=== PATIENT | female | born 1970 | race Caucasian/White ===

== ENCOUNTER → 2018-09-13 | Outpatient (CLI) | payer OTHER ==
[~2018-09-13] MED LIST: ERYTHROMYCIN PO; FLUO10 PO; LORA1 PO
[2018-09-15 15:06] LABS: HPV 16 Positive (Negative); HPV 18 Negative (Negative); HPV OTHER HR TYPES Negative (Negative)
== END | disposition home or self-care (01) ==
LOC: LAB SHORT 16:33 → LAB 16:33
PROVIDERS: Obstetrics & Gynecology
DX: Z01.419 Encounter for gynecological examination (general) (routine) without abnormal findings (principal)
CPT/HCPCS: 87624; 87625; G0123

== ENCOUNTER → 2018-09-21 | Outpatient (CLI) | payer OTHER | END | disposition home or self-care (01) | LOC: LAB SHORT 08:31 → PLD 08:31 | DX: R87.618 Other abnormal cytological findings on specimens from cervix uteri (principal); R87.612 Low grade squamous intraepithelial lesion on cytologic smear of cervix (LGSIL) | CPT/HCPCS: 88305 ==

== ENCOUNTER → 2018-11-30 | Outpatient (CLI) | payer OTHER ==
[~2018-11-30] MED LIST changes: +BENADRYL25 MG PO; +Bactrim Ds Tab1 EACH PO; +Bentyl20 MG PO; +CIPR500 PO; +DOCU100 PO; +Flagyl500 MG PO; +HYDMOR4 PO; +IBUP800 PO; +LEVSOD25 PO; +MELO7.5 PO; +Nature-Throid65 MG PO; +ONDA4ODT MM; +OSCIMIN SL0.125 MG SL; +OTC THYROID SUPP PO; +Ondansetron Odt8 MG PO; +PROBIOTIC PO; +PROG100 PO; +Percocet 5-3251 EACH PO; +Roxicodone5 MG PO; +SIMILASE PO; +THERA1 EACH PO; +Vitamin B Comple1 EA PO; +[UNRECOGNIZED DRUG - OTHER]; +[UNRECOGNIZED DRUG - OTHER]; +[UNRECOGNIZED DRUG - OTHER] PO; +[UNRECOGNIZED DRUG - OTHER] PO; +[UNRECOGNIZED DRUG - REMARK]
[2018-11-30 18:01] LABS: BASOPHILS ABSOLUTE AUTO 0.03 K/mm3 (0.00-0.23); BASOPHILS PERCENT AUTO 1 % (0-2); EOSINOPHILS ABSOLUTE AUTO 0.16 K/mm3 (0.00-0.68); EOSINOPHILS PERCENT AUTO 3 % (0-6); Hematocrit 38.9 % (33.0-51.0); Hemoglobin 13.4 g/dL (11.5-16.0); IMMATURE GRAN ABSOLUTE AUTO 0.01 K/mm3 (0.00-0.10); IMMATURE GRAN PERCENT AUTO 0 % (0-1); LYMPHOCYTES ABSOLUTE AUTO 2.09 K/mm3 (0.84-5.20); LYMPHOCYTES PERCENT AUTO 39 % (21-46); MONOCYTES ABSOLUTE AUTO 0.49 K/mm3 (0.16-1.47); MONOCYTES PERCENT AUTO 9 % (4-13); Mean Corpuscular HGB 29.3 pg (26.0-34.0); Mean Corpuscular HGB Conc 34.4 g/dL (31.5-36.5); Mean Corpuscular Volume 85 fL (80-100); Mean Platelet Volume 8.6 fL (9.1-12.4); NEUTROPHILS ABSOLUTE AUTO 2.57 K/mm3 (1.96-9.15); NEUTROPHILS PERCENT AUTO 48 % (41-73); Platelet Count 419 K/mm3 (150-400); RDW Coefficient Variation 12.5 % (11.7-14.2); RDW Standard Deviation 38.4 fL (35.1-46.3); Red Blood Cell Count 4.57 M/mm3 (3.80-5.20); White Blood Cell Count 5.35 K/mm3 (4.00-11.30)
== END ==
LOC: LAB SHORT 17:45 → LAB 17:45
PROVIDERS: Obstetrics & Gynecology
DX: Z01.812 Encounter for preprocedural laboratory examination (principal); D06.9 Carcinoma in situ of cervix, unspecified; N39.3 Stress incontinence (female) (male)
CPT/HCPCS: 85025

== ENCOUNTER 2018-12-05 06:04 | Day surgery (SDC) | payer OTHER ==
[~2018-12-05] VITALS: Ht 162.6 cm; Wt 77.6 kg
[~2018-12-05 06:04] MED LIST changes: -BENADRYL25 MG PO; -Bactrim Ds Tab1 EACH PO; -Bentyl20 MG PO; -CIPR500 PO; -DOCU100 PO; -Flagyl500 MG PO; -HYDMOR4 PO; -IBUP800 PO; -LEVSOD25 PO; -Nature-Throid65 MG PO; -ONDA4ODT MM; -OSCIMIN SL0.125 MG SL; -Ondansetron Odt8 MG PO; -PROG100 PO; -Percocet 5-3251 EACH PO; -Roxicodone5 MG PO
--- NOTE | 2018-12-05 06:33 | NUR ---
History, Chart, Medications and Allergies reviewed before start of procedure. Patient confirms NPO status and agrees with scheduled surgery. Lungs clear T/O to Auscultation. Patient reports completing Chlorhexadine shower X2 prior to admission to hospital. Pre-Op teaching done. Pt verbalizes understanding.
[2018-12-05] MEDS ORDERED: PROG100 PO (07:08)
--- NOTE | 2018-12-05 07:13 | NUR ---
BEDSIDE REPORT WITH MORTGAGE SPECIALIST COMPLETED AT BEDSIDE, ANGELA Solomon
--- NOTE | 2018-12-05 07:14 | NUR ---
SERUM SUBMITTED DUE TO DILUTE URINE, ANESTHESIOLOGIST HAS BEEN NOTIFIED.
--- NOTE | 2018-12-05 07:35 | NUR ---
[id number]-CALL RECEIVED FROM OR TO BRING PATIENT. PATIENT SENT HER WEDDING RING AND HER GLASSES WITH HER .
--- NOTE | 2018-12-05 19:36 | NUR ---
SHIFT SUMMARY PT STRUGGLED WITH PAIN MANAGMENT INITIALLY POST OP BUT ONCE PERCOCET WAS STARTED PT HAD MUCH BETTER PAIN MANAGEMENT. WAS UP ABLE TO AMBULATE DUE TO DIZZINESS/NOT FEELING WELL BUT AGREED TO TRY AGAIN LATER.
[2018-12-06 03:55] LABS: BASOPHILS ABSOLUTE AUTO 0.02 K/mm3 (0.00-0.23); BASOPHILS PERCENT AUTO 0 % (0-2); EOSINOPHILS ABSOLUTE AUTO 0.02 K/mm3 (0.00-0.68); EOSINOPHILS PERCENT AUTO 0 % (0-6); Hematocrit 34.2 % (33.0-51.0); Hemoglobin 11.4 g/dL (11.5-16.0); IMMATURE GRAN ABSOLUTE AUTO 0.02 K/mm3 (0.00-0.10); IMMATURE GRAN PERCENT AUTO 0 % (0-1); LYMPHOCYTES ABSOLUTE AUTO 2.03 K/mm3 (0.84-5.20); LYMPHOCYTES PERCENT AUTO 23 % (21-46); MONOCYTES ABSOLUTE AUTO 0.81 K/mm3 (0.16-1.47); MONOCYTES PERCENT AUTO 9 % (4-13); Mean Corpuscular HGB 29.4 pg (26.0-34.0); Mean Corpuscular HGB Conc 33.3 g/dL (31.5-36.5); Mean Corpuscular Volume 88 fL (80-100); Mean Platelet Volume 8.4 fL (9.1-12.4); NEUTROPHILS ABSOLUTE AUTO 6.02 K/mm3 (1.96-9.15); NEUTROPHILS PERCENT AUTO 68 % (41-73); Platelet Count 329 K/mm3 (150-400); RDW Coefficient Variation 12.9 % (11.7-14.2); RDW Standard Deviation 41.8 fL (35.1-46.3); Red Blood Cell Count 3.88 M/mm3 (3.80-5.20); White Blood Cell Count 8.92 K/mm3 (4.00-11.30)
--- NOTE | 2018-12-06 07:17 | NUR ---
POD 1 S/P LAVH. PT VSS T/O NIGHT. DRESSINGS CDI, PT HAVING MIN BAGINAL BLEEDING. PAIN MGD ALT PERCOCET AND OXYCODONE W/REP RELIEF. PT DUNIA PO, REP +FLATUS, NO C/O N/V. PT USING CALL LIGHT FOR ASSISTANCE, REP GIVEN TO DAY RN.
[2018-12-06] MEDS ORDERED: DOCU100 PO (11:12)
[2018-12-06] MEDS ORDERED: Percocet 5-3251 EACH PO (11:13)
[2018-12-06] MEDS ORDERED: IBUP800 PO (11:13)
--- NOTE | 2018-12-06 16:40 | NUR ---
DISCHARGE PT VOIDING WELL, TOLERATING DIET, PASSING GAS, AND PAIN WELL MANAGED. SCRIPT GIVEN TO SPOUSE. PT AND SPOUSE FEEL COMFORTABLE WITH DISCHARGE.
== END 2018-12-06 16:41 | disposition home or self-care (01) ==
LOC: ORSCMMR 06:04 → ORD 07:30 → SURS 10:15 → ORSCMMR 12-06 16:41
PROVIDERS: Obstetrics & Gynecology
DX: D06.9 Carcinoma in situ of cervix, unspecified (principal); R10.2 Pelvic and perineal pain; N83.12 Corpus luteum cyst of left ovary; Q50.5 Embryonic cyst of broad ligament; N39.3 Stress incontinence (female) (male); N80.3 Endometriosis of pelvic peritoneum; Z79.899 Other long term (current) drug therapy
CPT/HCPCS: 36415; 84703; 85025; 88307; C1771; J0690; J1100; J1170; J1885; J2250; J2370; J2405; J2704; J2710; J3010; J7030; J7120

== ENCOUNTER 2018-12-11 23:59 | Emergency (ER) | payer OTHER ==
[~2018-12-11] VITALS: Ht 162.6 cm; Wt 74.8 kg
[~2018-12-11 23:59] MED LIST changes: +DOCU100 PO; +IBUP800 PO; +PROG100 PO; +Percocet 5-3251 EACH PO
[2018-12-12 02:59] LABS: BASOPHILS ABSOLUTE AUTO 0.02 K/mm3 (0.00-0.23); BASOPHILS PERCENT AUTO 0 % (0-2); EOSINOPHILS PERCENT AUTO 3 % (0-6); Hematocrit 39.1 % (33.0-51.0); Hemoglobin 13.6 g/dL (11.5-16.0); IMMATURE GRAN ABSOLUTE AUTO 0.01 K/mm3 (0.00-0.10); IMMATURE GRAN PERCENT AUTO 0 % (0-1); LYMPHOCYTES ABSOLUTE AUTO 2.19 K/mm3 (0.84-5.20); LYMPHOCYTES PERCENT AUTO 23 % (21-46); MONOCYTES ABSOLUTE AUTO 0.91 K/mm3 (0.16-1.47); MONOCYTES PERCENT AUTO 9 % (4-13); Mean Corpuscular HGB 29.1 pg (26.0-34.0); Mean Corpuscular HGB Conc 34.8 g/dL (31.5-36.5); Mean Platelet Volume 8.5 fL (9.1-12.4); NEUTROPHILS ABSOLUTE AUTO 6.31 K/mm3 (1.96-9.15); NEUTROPHILS PERCENT AUTO 65 % (41-73); Platelet Count 391 K/mm3 (150-400); RDW Coefficient Variation 12.7 % (11.7-14.2); RDW Standard Deviation 38.2 fL (35.1-46.3); Red Blood Cell Count 4.67 M/mm3 (3.80-5.20); White Blood Cell Count 9.74 K/mm3 (4.00-11.30)
[2018-12-12 03:00] LABS: Mean Corpuscular Volume 84 fL (80-100)
[2018-12-12 03:12] LABS: Alanine Aminotransfer (ALT/SGP 35 U/L (12-78); Albumin, Blood 3.7 g/dL (3.4-5.0); Albumin/Globulin Ratio 0.9 (0.8-1.8); Alk Phos 98 U/L (50-136); Anion Gap 10 mmol/L (6-16); Aspartate Aminotrans (AST/SGOT 20 U/L (12-37); Bilirubin, Total 0.3 mg/dL (0.1-1.0); Blood Urea Nitrogen 12 mg/dL (8-24); CO2, Blood 22 mmol/L (21-32); Chloride, Blood 110 mmol/L (98-108); Creatinine, Blood 0.46 mg/dL (0.40-1.00); Glomerular Filtration Rate >60 (60-); Glucose, Blood 96 mg/dL (70-99); Potassium, Blood 3.1 mmol/L (3.5-5.5); Sodium, Blood 142 mmol/L (136-145); Total Protein, Blood 7.7 g/dL (6.4-8.2)
[2018-12-12 05:11] LABS: Source, Urine Clean Catch
[2018-12-12 05:13] LABS: Bilirubin, Urine Neg (Neg); Blood, Urine 1+ (Neg); Glucose Qualitative, Urine Neg (Neg); Ketones, Urine Neg (Neg); Leukocyte Esterase, Urine 1+ (Neg); Nitrite, Urine Neg (Neg); Protein, Urine Neg (Neg); Urobilinogen, Urine NORM (Normal)
[2018-12-12 05:22] LABS: Appearance, Urine Clear (Clear); Color, Urine Yellow (P-Yellow)
[2018-12-12 05:36] LABS: Bacteria Many /hpf; Mucus Mod (0-Heavy); Red Blood Cells, Urine 0-2 /hpf (0-2); Squamous Epithelial Cells Few /hpf (Few)
[2018-12-12] MEDS ORDERED: CIPR500 PO (06:22)
[2018-12-12] MEDS ORDERED: Flagyl500 MG PO (06:22)
[2018-12-12] MEDS ORDERED: Roxicodone5 MG PO (06:22)
[2018-12-12] MEDS ORDERED: HYDMOR4 PO (20:40)
[2018-12-12] MEDS ORDERED: ONDA4ODT MM (20:40)
== END 2018-12-12 06:42 | disposition home or self-care (01) ==
LOC: ER 23:59
PROVIDERS: Emergency Medicine
DX: K57.32 Diverticulitis of large intestine without perforation or abscess without bleeding (principal); Z87.891 Personal history of nicotine dependence; Z88.8 Allergy status to other drugs, medicaments and biological substances; Z79.899 Other long term (current) drug therapy
CPT/HCPCS: 36415; 74177; 80053; 81001; 85025; 87086; 96361; 96374-59; 96375; 96376; 99284-25; A9270; A9270-GY; J1170; J2405; J7120; Q9967

== ENCOUNTER 2018-12-12 13:50 | Emergency (ER) | payer OTHER ==
[~2018-12-12] VITALS: Ht 162.6 cm; Wt 74.8 kg
[~2018-12-12 13:50] MED LIST changes: +CIPR500 PO; +Flagyl500 MG PO; +Roxicodone5 MG PO
[2018-12-12 14:30] LABS: BASOPHILS ABSOLUTE AUTO 0.02 K/mm3 (0.00-0.23); BASOPHILS PERCENT AUTO 0 % (0-2); EOSINOPHILS ABSOLUTE AUTO 0.23 K/mm3 (0.00-0.68); EOSINOPHILS PERCENT AUTO 3 % (0-6); Hematocrit 40.5 % (33.0-51.0); Hemoglobin 14.2 g/dL (11.5-16.0); IMMATURE GRAN ABSOLUTE AUTO 0.02 K/mm3 (0.00-0.10); IMMATURE GRAN PERCENT AUTO 0 % (0-1); LYMPHOCYTES ABSOLUTE AUTO 1.97 K/mm3 (0.84-5.20); LYMPHOCYTES PERCENT AUTO 26 % (21-46); MONOCYTES ABSOLUTE AUTO 0.65 K/mm3 (0.16-1.47); MONOCYTES PERCENT AUTO 9 % (4-13); Mean Corpuscular HGB 29.3 pg (26.0-34.0); Mean Corpuscular HGB Conc 35.1 g/dL (31.5-36.5); Mean Corpuscular Volume 84 fL (80-100); Mean Platelet Volume 8.4 fL (9.1-12.4); NEUTROPHILS ABSOLUTE AUTO 4.68 K/mm3 (1.96-9.15); NEUTROPHILS PERCENT AUTO 62 % (41-73); Platelet Count 388 K/mm3 (150-400); RDW Coefficient Variation 12.8 % (11.7-14.2); Red Blood Cell Count 4.85 M/mm3 (3.80-5.20); White Blood Cell Count 7.57 K/mm3 (4.00-11.30)
[2018-12-12 14:51] LABS: Alanine Aminotransfer (ALT/SGP 32 U/L (12-78); Albumin, Blood 3.9 g/dL (3.4-5.0); Alk Phos 98 U/L (50-136); Anion Gap 8 mmol/L (6-16); Aspartate Aminotrans (AST/SGOT 28 U/L (12-37); Bilirubin, Total 0.7 mg/dL (0.1-1.0); Blood Urea Nitrogen 7 mg/dL (8-24); Bun/Creatinine Ratio 13.8 (12.0-20.0); CO2, Blood 22 mmol/L (21-32); Calcium, Blood 9.7 mg/dL (8.5-10.1); Chloride, Blood 110 mmol/L (98-108); Creatinine, Blood 0.51 mg/dL (0.40-1.00); Glomerular Filtration Rate >60 (60-); Glucose, Blood 125 mg/dL (70-99); Potassium, Blood 3.7 mmol/L (3.5-5.5); Sodium, Blood 140 mmol/L (136-145); Total Protein, Blood 7.9 g/dL (6.4-8.2)
[2018-12-12] MEDS ORDERED: HYDMOR4 PO (20:40)
[2018-12-12] MEDS ORDERED: ONDA4ODT MM (20:40)
== END 2018-12-12 21:10 | disposition home or self-care (01) ==
LOC: ER 13:50
PROVIDERS: Physician Assistant
DX: R51 Headache (principal); Z88.8 Allergy status to other drugs, medicaments and biological substances; Z79.899 Other long term (current) drug therapy
CPT/HCPCS: 36415; 70450; 80053; 83690; 85025; 96361; 96374; 96375; 96376; 99284-25; A9270-GY; J1170; J1885; J2405; J7030

== ENCOUNTER 2018-12-16 13:36 | Inpatient (IN) | payer OTHER ==
[~2018-12-16] VITALS: Ht 162.6 cm; Wt 77.6 kg
[~2018-12-16 13:36] MED LIST changes: +HYDMOR4 PO; +ONDA4ODT MM
[2018-12-16 14:28] LABS: Source, Urine Clean Catch
[2018-12-16 14:52] LABS: Bilirubin, Urine Neg (Neg); Blood, Urine 2+ (Neg); Glucose Qualitative, Urine Neg (Neg); Ketones, Urine 2+ (Neg); Leukocyte Esterase, Urine 1+ (Neg); Nitrite, Urine Neg (Neg); Protein, Urine Neg (Neg); Urobilinogen, Urine NORM (Normal)
[2018-12-16 14:59] LABS: Appearance, Urine Hazy (Clear); Color, Urine Yellow (P-Yellow)
[2018-12-16 15:01] LABS: Bacteria Rare /hpf; Red Blood Cells, Urine 0-2 /hpf (0-2); Squamous Epithelial Cells Mod /hpf (Few)
[2018-12-16 15:03] LABS: Albumin, Blood 3.8 g/dL (3.4-5.0); Bilirubin, Total 0.5 mg/dL (0.1-1.0); Calcium, Blood 9.7 mg/dL (8.5-10.1); Potassium, Blood 3.7 mmol/L (3.5-5.5); Total Protein, Blood 7.8 g/dL (6.4-8.2)
[2018-12-16 15:05] LABS: BASOPHILS ABSOLUTE AUTO 0.03 K/mm3 (0.00-0.23); BASOPHILS PERCENT AUTO 0 % (0-2); EOSINOPHILS ABSOLUTE AUTO 0.09 K/mm3 (0.00-0.68); EOSINOPHILS PERCENT AUTO 1 % (0-6); Hematocrit 41.1 % (33.0-51.0); Hemoglobin 14.6 g/dL (11.5-16.0); IMMATURE GRAN ABSOLUTE AUTO 0.04 K/mm3 (0.00-0.10); IMMATURE GRAN PERCENT AUTO 0 % (0-1); LYMPHOCYTES ABSOLUTE AUTO 1.32 K/mm3 (0.84-5.20); LYMPHOCYTES PERCENT AUTO 12 % (21-46); MONOCYTES ABSOLUTE AUTO 1.08 K/mm3 (0.16-1.47); MONOCYTES PERCENT AUTO 10 % (4-13); Mean Corpuscular HGB 29.5 pg (26.0-34.0); Mean Corpuscular HGB Conc 35.5 g/dL (31.5-36.5); Mean Corpuscular Volume 83 fL (80-100); Mean Platelet Volume 8.6 fL (9.1-12.4); NEUTROPHILS ABSOLUTE AUTO 8.35 K/mm3 (1.96-9.15); NEUTROPHILS PERCENT AUTO 77 % (41-73); Platelet Count 383 K/mm3 (150-400); RDW Coefficient Variation 12.3 % (11.7-14.2); RDW Standard Deviation 37.4 fL (35.1-46.3); Red Blood Cell Count 4.95 M/mm3 (3.80-5.20); White Blood Cell Count 10.91 K/mm3 (4.00-11.30)
[2018-12-16 16:12] LABS: Bun/Creatinine Ratio 10.1 (12.0-20.0); Creatinine, Blood 1.19 mg/dL (0.40-1.00)
[2018-12-16] MEDS ORDERED: LEVSOD25 PO (18:47)
[2018-12-16] MEDS ORDERED: Nature-Throid65 MG PO (18:48)
--- NOTE | 2018-12-16 21:38 | NUR ---
PATIENT USED CALL LIGHT TO STATES SHE WAS FEELING FLUSHED AND CLAMMY. PATIENT WAS ANXIOUS AND FELT LIKE SHE WAS GOING TO THROW UP. PATIENT HEART RATE UP TO 130'S FOR LESS THAN ONE MINUTE. HEART RATE MAINTAINING IN THE 100'S.
--- NOTE | 2018-12-17 00:10 | NUR ---
PATIENT USED CALL LIGHT STATING SHE WAS ITCHY AND HAD A RASH ON BOTH INNER KNEE AND THIGHS ALONG WITH BOTH WRIST. PATIENT JUST FINISHED RECIEVING IV CIPRO. PATIENT HAS BEEN TAKING PO CIPRO FOR ALMOST A WEEK AT HOME. PATIENT DENIES ANY OTHER SYMPTOMS. NOTIFIED DR. HARTMAN HOSPITALIST WHO ORDERED FOR ONE TIME DOSE OF BENADRYL AND PREDISONE. PATIENT IS REFUSING PREDISONE STATING THAT IT CRASHES HER IMMUNE SYSTEM DUE TO LYME DISEASE.
--- NOTE | 2018-12-17 01:01 | NUR ---
PATIENT IS VERY DROWSY. ORIENTATED. RASH IS ALMOST RESOLVED.
--- NOTE | 2018-12-17 02:28 | NUR ---
STARTED FLAGYL AND WITHIN 5 MINUTES PATIENT FELT HER HEART WAS RACING, HANDS WERE CLAMMY, FELT IF SHE WAS GOING TO VOMIT, AND HAD DRY MOUTH. PATIENT FELT VERY OFF. STOPPED INFUSION AND CALL DR. DIXON WHO STATED TO HOLD DOSE FOR NOW AND MONITOR. NO FURTHER ORDERS TAKEN. NO ORDERS FOR DISCONTINATION AT THIS TIME.
--- NOTE | 2018-12-17 02:31 | NUR ---
PATIENT STATES SHE FEELS NORMAL AT THIS TIME.
[2018-12-17 03:47] LABS: Source, Urine Clean Catch
[2018-12-17 03:51] LABS: BASOPHILS ABSOLUTE AUTO 0.02 K/mm3 (0.00-0.23); BASOPHILS PERCENT AUTO 0 % (0-2); EOSINOPHILS ABSOLUTE AUTO 0.06 K/mm3 (0.00-0.68); EOSINOPHILS PERCENT AUTO 1 % (0-6); Hematocrit 34.1 % (33.0-51.0); Hemoglobin 11.7 g/dL (11.5-16.0); IMMATURE GRAN ABSOLUTE AUTO 0.01 K/mm3 (0.00-0.10); IMMATURE GRAN PERCENT AUTO 0 % (0-1); LYMPHOCYTES ABSOLUTE AUTO 1.49 K/mm3 (0.84-5.20); LYMPHOCYTES PERCENT AUTO 22 % (21-46); MONOCYTES ABSOLUTE AUTO 0.83 K/mm3 (0.16-1.47); MONOCYTES PERCENT AUTO 12 % (4-13); Mean Corpuscular HGB 28.6 pg (26.0-34.0); Mean Corpuscular HGB Conc 34.3 g/dL (31.5-36.5); Mean Corpuscular Volume 83 fL (80-100); Mean Platelet Volume 8.4 fL (9.1-12.4); NEUTROPHILS ABSOLUTE AUTO 4.53 K/mm3 (1.96-9.15); NEUTROPHILS PERCENT AUTO 65 % (41-73); Platelet Count 288 K/mm3 (150-400); RDW Coefficient Variation 12.6 % (11.7-14.2); RDW Standard Deviation 38.3 fL (35.1-46.3); Red Blood Cell Count 4.09 M/mm3 (3.80-5.20); White Blood Cell Count 6.94 K/mm3 (4.00-11.30)
[2018-12-17 03:51] LABS: Bilirubin, Urine Neg (Neg); Blood, Urine 3+ (Neg); Glucose Qualitative, Urine Neg (Neg); Ketones, Urine Neg (Neg); Leukocyte Esterase, Urine 2+ (Neg); Nitrite, Urine Neg (Neg); Protein, Urine Neg (Neg); Urobilinogen, Urine NORM (Normal)
[2018-12-17 04:09] LABS: Albumin, Blood 2.8 g/dL (3.4-5.0); Albumin/Globulin Ratio 0.9 (0.8-1.8); Bilirubin, Total 0.8 mg/dL (0.1-1.0); Bun/Creatinine Ratio 9.2 (12.0-20.0); Calcium, Blood 7.9 mg/dL (8.5-10.1); Creatinine, Blood 1.3 mg/dL (0.40-1.00); Globulin, Blood 3.2 g/dL (2.2-4.0); Potassium, Blood 3.8 mmol/L (3.5-5.5)
[2018-12-17 04:15] LABS: Appearance, Urine Clear (Clear); Color, Urine Pale Yellow (P-Yellow); Red Blood Cells, Urine 0-2 /hpf (0-2); Squamous Epithelial Cells Few /hpf (Few); White Blood Cells, Urine 25-50 /hpf (0-5)
[2018-12-17 04:16] LABS: Bacteria Few /hpf
--- NOTE | 2018-12-17 06:32 | NUR ---
PATIENT CONTINUES TO HAVE NAUSEA AND PAIN THAT IS BEING MANAGED BY PRN'S. PATIENT HAS HAD EMESIS X1. PATIENT HAD RASH AFTER RECIEVING CIPRO THAT HAS RESOLVED AND REACTION AFTER STARTING FLAYGL. PATIENT STATES THAT SHE TOOK FLAYGL JUST BEFORE SHE CAME INTO THE ER WITH THE SAME REACTION SHE HAD EARLIER AND THEY DIDN'T THINK IT WAS THE MEDICATION BECAUSE SHE HAS BEEN TAKING IT ALL WEEK. NOW THEY THINK IT WAS DUE TO FLAYGL.
--- NOTE | 2018-12-17 10:57 | NUR ---
UPDATE RASH HAS INCREASED TO HER ABDOMEN AND CHEST. VS STABLE. PT REPORTS FEELING "OK", BUT STATES SHE IS ITCHY. DR. MERRILL CALLED AND NOTIFIED. WILL CONTINUE TO MONITOR CLOSELY.
--- NOTE | 2018-12-17 17:42 | NUR ---
SHIFT SUMMARY PT ALERT AND ORIENTED. VS STABLE. O2 SATS REMAIN ABOVE 90% ON RA. PT STATES HER PAIN HAS IMPROVED THIS EVENING. PT HAS NOT HAD A BM THIS SHIFT. RASH HAS COME BACK THIS EVENING AND PT MEDICATED PER EMAR. PLAN IS TO TRY BACTRIM THIS EVENING. PT ABLE TO AMBULATE TO BATHROOM NEEDED TO VOID. FAMILY AT BEDSIDE. WILL CONTINUE TO MONITOR AND REPORT TO ONCOMING RN. CALL LIGHT IN REACH.
--- NOTE | 2018-12-17 21:30 | NUR ---
PATIENT HAS NOTED RASH BACK ON CHEST AND BOTH UPPER THIGHS. PATIENT DENIES ANY SHORTNESS OF BREATH. PATIENT CAN NOT HAVE ANY MORE PRN BENADRYL AT THIS TIME. CALLED DR. HARTMAN WHO ORDERED FOR IV PEPCID AND BENADRYL X1. HOLD BACTRIM UNTIL 2200. PATIENT ACCEPTABLE OF THIS.
--- NOTE | 2018-12-17 23:01 | NUR ---
PATIENT WAS GIVEN BACTRIM AROUND 2230. SHOWS NO SIGNS OF REACTION UP TO THIS POINT.
--- NOTE | 2018-12-18 00:59 | NUR ---
PATIENT HAS RASH STARTING ON UPPER CHEST, LEFT FLANK, AND LEFT THIGH. GIVEN PO BENADRYL.
--- NOTE | 2018-12-18 04:32 | NUR ---
NO SIGNS OF RASH AT THIS TIME. PATIENT HAS BEEN SLEEPING COMFORTABLY.
[2018-12-18 04:33] LABS: Anion Gap 5 mmol/L (6-16); Blood Urea Nitrogen 9 mg/dL (8-24); Bun/Creatinine Ratio 9.6 (12.0-20.0); CO2, Blood 23 mmol/L (21-32); Calcium, Blood 8.3 mg/dL (8.5-10.1); Chloride, Blood 113 mmol/L (98-108); Creatinine, Blood 0.94 mg/dL (0.40-1.00); Glomerular Filtration Rate >60 (60-); Glucose, Blood 90 mg/dL (70-99); Potassium, Blood 3.8 mmol/L (3.5-5.5); Sodium, Blood 141 mmol/L (136-145)
--- NOTE | 2018-12-18 06:19 | NUR ---
PATIENT CONTINUED TO HAVE RASHES ON AND OFF THROUGH THE NIGHT. CURRENTLY HAS NO RASH. PATIENT HAS SLEPT WELL DO TO BENADRYL. PATIENT SLIGHTLY DROWSY, BUT WAKES AND IS ORIENTATED. PATIENT AT BEDSIDE. DENIES ANY PAIN OR NAUSEA AT THIS TIME. RECIEVED PRN'S FOR BOTH NAUSEA AND PAIN.
[2018-12-18] MEDS ORDERED: BENADRYL25 MG PO (09:14)
[2018-12-18] MEDS ORDERED: OSCIMIN SL0.125 MG SL (09:22)
[2018-12-18] MEDS ORDERED: Bactrim Ds Tab1 EACH PO (09:32)
--- NOTE | 2018-12-18 09:55 | NUR ---
PT ALERT AND ORIENTED. VS STABLE. ORDERS THIS AM FOR DISCHARGE. PT GIVEN DISCHARGE INTRUCTIONS. NEW MEDICATIONS REGIMEN EDUCATED TO PT. ALL QUESTIONS ANSWERED. BOTH IV REMOVED. PT TAKEN OUT BY WHEELCHAIR.
== END 2018-12-18 10:05 | disposition home or self-care (01) | DRG 392 ==
LOC: ER 13:36 → PCU 18:51
PROVIDERS: Hospitalist; Nurse Practitioner Acute Care; Physician Assistant; ADMIT Internal Medicine
DX: K57.32 Diverticulitis of large intestine without perforation or abscess without bleeding (principal); N17.9 Acute kidney failure, unspecified; E87.2 Acidosis; G43.909 Migraine, unspecified, not intractable, without status migrainosus; G44.89 Other headache syndrome; K58.9 Irritable bowel syndrome, unspecified; E03.9 Hypothyroidism, unspecified; T37.3X5A Adverse effect of other antiprotozoal drugs, initial encounter; E86.9 Volume depletion, unspecified; Z90.710 Acquired absence of both cervix and uterus; Z90.722 Acquired absence of ovaries, bilateral; Z90.79 Acquired absence of other genital organ(s); Z79.899 Other long term (current) drug therapy
CPT/HCPCS: 36415; 71046; 74176; 80048; 80053; 81001; 83605; 83690; 83735; 84100; 85025; 87040; 87086; 87493; 93005; 93010; 96361; 96365; 96375; 96376; 99285-25; J0696; J0744; J1170; J1200; J1650; J2405; J2543; J3480; J7030; Q0163

== ENCOUNTER 2018-12-21 16:10 | Emergency (ER) | payer OTHER ==
[~2018-12-21] VITALS: Ht 162.6 cm; Wt 73.5 kg
[~2018-12-21 16:10] MED LIST changes: +BENADRYL25 MG PO; +Bactrim Ds Tab1 EACH PO; +LEVSOD25 PO; +Nature-Throid65 MG PO; +OSCIMIN SL0.125 MG SL
[2018-12-21 16:57] LABS: BASOPHILS ABSOLUTE AUTO 0.02 K/mm3 (0.00-0.23); BASOPHILS PERCENT AUTO 0 % (0-2); EOSINOPHILS ABSOLUTE AUTO 0.22 K/mm3 (0.00-0.68); EOSINOPHILS PERCENT AUTO 4 % (0-6); Hematocrit 41.5 % (33.0-51.0); Hemoglobin 14.6 g/dL (11.5-16.0); IMMATURE GRAN ABSOLUTE AUTO 0.01 K/mm3 (0.00-0.10); IMMATURE GRAN PERCENT AUTO 0 % (0-1); LYMPHOCYTES ABSOLUTE AUTO 1.54 K/mm3 (0.84-5.20); LYMPHOCYTES PERCENT AUTO 28 % (21-46); MONOCYTES ABSOLUTE AUTO 0.52 K/mm3 (0.16-1.47); MONOCYTES PERCENT AUTO 9 % (4-13); Mean Corpuscular HGB 28.9 pg (26.0-34.0); Mean Corpuscular HGB Conc 35.2 g/dL (31.5-36.5); Mean Corpuscular Volume 82 fL (80-100); Mean Platelet Volume 8.5 fL (9.1-12.4); NEUTROPHILS ABSOLUTE AUTO 3.28 K/mm3 (1.96-9.15); NEUTROPHILS PERCENT AUTO 59 % (41-73); Platelet Count 444 K/mm3 (150-400); RDW Coefficient Variation 12.6 % (11.7-14.2); RDW Standard Deviation 37.5 fL (35.1-46.3); Red Blood Cell Count 5.06 M/mm3 (3.80-5.20); White Blood Cell Count 5.59 K/mm3 (4.00-11.30)
[2018-12-21 17:21] LABS: Alanine Aminotransfer (ALT/SGP 110 U/L (12-78); Albumin, Blood 4.1 g/dL (3.4-5.0); Alk Phos 99 U/L (50-136); Anion Gap 10 mmol/L (6-16); Aspartate Aminotrans (AST/SGOT 119 U/L (12-37); Bilirubin, Total 0.2 mg/dL (0.1-1.0); Blood Urea Nitrogen 12 mg/dL (8-24); Bun/Creatinine Ratio 15.5 (12.0-20.0); CO2, Blood 21 mmol/L (21-32); Calcium, Blood 9.9 mg/dL (8.5-10.1); Chloride, Blood 108 mmol/L (98-108); Creatinine, Blood 0.77 mg/dL (0.40-1.00); Globulin, Blood 4.1 g/dL (2.2-4.0); Glomerular Filtration Rate >60 (60-); Glucose, Blood 121 mg/dL (70-99); Potassium, Blood 3.3 mmol/L (3.5-5.5); Sodium, Blood 139 mmol/L (136-145); Total Protein, Blood 8.2 g/dL (6.4-8.2)
[2018-12-21 23:53] LABS: Source, Urine Clean Catch
[2018-12-22 00:05] LABS: Appearance, Urine Clear (Clear); Bilirubin, Urine Neg (Neg); Blood, Urine 2+ (Neg); Color, Urine Amber (P-Yellow); Glucose Qualitative, Urine Neg (Neg); Ketones, Urine 1+ (Neg); Leukocyte Esterase, Urine 1+ (Neg); Nitrite, Urine Neg (Neg); Protein, Urine 1+ (Neg); Specific Gravity, Urine 1.015 (1.003-1.022); Urobilinogen, Urine NORM (Normal)
[2018-12-22 00:19] LABS: Bacteria Many /hpf; Mucus Mod (0-Heavy); Red Blood Cells, Urine 0-2 /hpf (0-2); Squamous Epithelial Cells Mod /hpf (Few)
[2018-12-22] MEDS ORDERED: Ondansetron Odt8 MG PO (01:25)
[2018-12-22] MEDS ORDERED: Bentyl20 MG PO (01:25)
== END 2018-12-22 01:42 | disposition home or self-care (01) ==
LOC: ER 16:10
PROVIDERS: Emergency Medicine; Physician Assistant
DX: R10.9 Unspecified abdominal pain (principal); Z88.0 Allergy status to penicillin; Z88.1 Allergy status to other antibiotic agents; Z88.8 Allergy status to other drugs, medicaments and biological substances; Z79.899 Other long term (current) drug therapy; E03.9 Hypothyroidism, unspecified; G43.909 Migraine, unspecified, not intractable, without status migrainosus; Z87.891 Personal history of nicotine dependence
CPT/HCPCS: 36415; 80053; 81001; 83605; 85025; 87086; 96361; 96372-59; 96374; 96375; 99284-25; J0500; J1630; J1885; J2060; J2405; J7030

== ENCOUNTER → 2022-01-20 | Outpatient (CLI) | payer OTHER ==
[~2022-01-20] MED LIST changes: +Bentyl20 MG PO; +EUTHYROX50 MC1 PO; +IBUP600 PO; +Ondansetron Odt8 MG PO
[2022-01-20 15:24] LABS: Source, Urine Clean Catch
[2022-01-20 17:38] LABS: Appearance, Urine Clear (Clear); Bilirubin, Urine Neg (Neg); Blood, Urine Neg (Neg); Glucose Qualitative, Urine Neg (Neg); Ketones, Urine Neg (Neg); Leukocyte Esterase, Urine Neg (Neg); Nitrite, Urine Neg (Neg); Protein, Urine Neg (Neg); Urobilinogen, Urine NORM (Normal); pH, Urine 6.5 (5.0-8.0)
[2022-01-20 19:39] LABS: Color, Urine Pale Yellow (P-Yellow)
== END | disposition home or self-care (01) ==
LOC: LAB SHORT 15:20
PROVIDERS: Obstetrics & Gynecology
DX: N28.89 Other specified disorders of kidney and ureter (principal)
CPT/HCPCS: 81003

== ENCOUNTER 2024-05-24 20:21 | Inpatient (IN) | payer OTHER ==
[~2024-05-24] VITALS: Ht 162.6 cm; Wt 79.4 kg
[2024-05-24] MEDS ORDERED: Ketorolac Tromethamine 30mg Vial IV ONE (20:55)
[2024-05-24 21:17] LABS: BASOPHILS ABSOLUTE AUTO 0.03 K/mm3 (0.00-0.23); BASOPHILS PERCENT AUTO 0 % (0-2); EOSINOPHILS ABSOLUTE AUTO 0.08 K/mm3 (0.00-0.68); EOSINOPHILS PERCENT AUTO 1 % (0-6); Hematocrit 38.5 % (33.0-51.0); Hemoglobin 13.5 g/dL (11.5-16.0); IMMATURE GRAN ABSOLUTE AUTO 0.03 K/mm3 (0.00-0.10); IMMATURE GRAN PERCENT AUTO 0 % (0-1); LYMPHOCYTES ABSOLUTE AUTO 2.05 K/mm3 (0.84-5.20); LYMPHOCYTES PERCENT AUTO 17 % (21-46); MONOCYTES ABSOLUTE AUTO 0.97 K/mm3 (0.16-1.47); MONOCYTES PERCENT AUTO 8 % (4-13); Mean Corpuscular HGB 29.2 pg (26.0-34.0); Mean Corpuscular HGB Conc 35.1 g/dL (31.5-36.5); Mean Corpuscular Volume 83 fL (80-100); Mean Platelet Volume 8.4 fL (9.1-12.4); NEUTROPHILS ABSOLUTE AUTO 8.74 K/mm3 (1.96-9.15); NEUTROPHILS PERCENT AUTO 73 % (41-73); Platelet Count 242 K/mm3 (150-400); RDW Coefficient Variation 12.2 % (11.7-14.2); RDW Standard Deviation 36.8 fL (35.1-46.3); Red Blood Cell Count 4.62 M/mm3 (3.80-5.20)
[2024-05-24] MEDS ORDERED: EUTHYROX75 MC1 PO (21:23)
[2024-05-24] MEDS ORDERED: ROSUVASTATIN CA10 MG PO (21:24)
[2024-05-24] MEDS ORDERED: Clindamycin 600mg in D5W 50 ML IV ONE (21:35)
[2024-05-24 21:37] LABS: C-REACTIVE PROTEIN, EXT RANGE 8.99 mg/dL (0.000-0.300); Magnesium, Blood 1.9 mg/dL (1.6-2.4)
[2024-05-24 21:39] LABS: Albumin, Blood 3.8 g/dL (3.4-5.0); Bilirubin, Direct 0.2 mg/dL (0.0-0.3); Bilirubin, Indirect 0.5 mg/dL (0.1-0.7); Bilirubin, Total 0.7 mg/dL (0.1-1.0); Bun/Creatinine Ratio 18.2 (12.0-20.0); Calcium, Blood 9.4 mg/dL (8.5-10.1); Creatinine, Blood 0.66 mg/dL (0.40-1.00); Globulin, Blood 3.9 g/dL (2.2-4.0); Phosphorus, Blood 1.8 mg/dL (2.5-4.9); Potassium, Blood 3.5 mmol/L (3.5-5.5); Total Protein, Blood 7.7 g/dL (6.4-8.2)
[2024-05-24] MEDS ORDERED: NS 1,000 ML IV SCH (22:10)
[2024-05-24] MEDS ORDERED: Morphine Sulfate 4 MG/1 ML Injection IV ONE (22:10)
[2024-05-24] MEDS ORDERED: CITALOPRAM HBR20 M9 PO (22:13)
[2024-05-24] MEDS ORDERED: IMITREX100 MG PO (22:13)
[2024-05-24 22:18] LABS: International Normalized Ratio 1.09; Prothrombin Time Results 11.6 Sec (9.7-11.5)
[2024-05-24] MEDS ORDERED: Vancomycin HCL 2,000 MG in NS 520 ML IV ONE (22:50)
[2024-05-24] MEDS ORDERED: Morphine Sulfate 4 MG/1 ML Injection IV PRN (23:40)
[2024-05-24] MEDS ORDERED: Ondansetron HCl 2 MG / ML 2ML Vial IV PRN (23:40)
[2024-05-24] MEDS ORDERED: TraMADol HCl 50 MG Tab PO PRN (23:40)
[2024-05-24] MEDS ORDERED: Naloxone HCl 0.4MG / ML 1ML Vial IV PRN (23:40)
[2024-05-24] MEDS ORDERED: FLU VACC TS2024-25(6MOS UP)/PF 45 MCG/0.5 ML SYRINGE IM ONE (23:45)
[2024-05-24] MEDS ORDERED: Acetaminophen 325 MG TABLET PO PRN (23:45)
[2024-05-25] MEDS ORDERED: CeFAZolin Sodium 2,000 MG in NS 100 ML IV SCH
[2024-05-25] MEDS ORDERED: SUMAtriptan succinate 50 MG Tab PO PRN (00:45)
[2024-05-25] MEDS ORDERED: IBUP600 PO (00:56)
[2024-05-25] MEDS ORDERED: DiphenhydrAMINE HCl 50 MG/ML 1ML Vial IV ONE (01:40)
[2024-05-25] MEDS ORDERED: NS 250 ML IV PRN (01:45)
[2024-05-25] MEDS ORDERED: Potassium Phosphate Dibasic 15 MM in Dextrose 5% 250 ML IV ONE (02:00)
[2024-05-25 02:03] VITALS: BP 110/65
[2024-05-25] MEDS ORDERED: Ketorolac Tromethamine 15mg Vial IV PRN (03:00)
--- NOTE | 2024-05-25 05:12 | NUR ---
SHIFT SUMMARY: Pt admitted for cellulitis and is a full code. Is alert and able to make needs known. ADLs have been IND. denies pain but states she does have some discomfort to the labia region. Declined and PRN medication when offered. Had the start of a rash from shoulder to mid back when coming to the floor from ED. also was at the end of vanco. notified was given a Benadryl x1 order. And told to DC all further vanco.
[2024-05-25 06:01] LABS: BASOPHILS ABSOLUTE AUTO 0.02 K/mm3 (0.00-0.23); BASOPHILS PERCENT AUTO 0 % (0-2); EOSINOPHILS ABSOLUTE AUTO 0.16 K/mm3 (0.00-0.68); EOSINOPHILS PERCENT AUTO 2 % (0-6); Hematocrit 35.5 % (33.0-51.0); Hemoglobin 12.2 g/dL (11.5-16.0); IMMATURE GRAN ABSOLUTE AUTO 0.03 K/mm3 (0.00-0.10); IMMATURE GRAN PERCENT AUTO 0 % (0-1); LYMPHOCYTES ABSOLUTE AUTO 1.75 K/mm3 (0.84-5.20); LYMPHOCYTES PERCENT AUTO 20 % (21-46); MONOCYTES ABSOLUTE AUTO 0.73 K/mm3 (0.16-1.47); MONOCYTES PERCENT AUTO 8 % (4-13); Mean Corpuscular HGB 29.5 pg (26.0-34.0); Mean Corpuscular HGB Conc 34.4 g/dL (31.5-36.5); Mean Corpuscular Volume 86 fL (80-100); Mean Platelet Volume 8.5 fL (9.1-12.4); NEUTROPHILS ABSOLUTE AUTO 6.01 K/mm3 (1.96-9.15); NEUTROPHILS PERCENT AUTO 69 % (41-73); Platelet Count 202 K/mm3 (150-400); RDW Coefficient Variation 12.4 % (11.7-14.2); RDW Standard Deviation 39.1 fL (35.1-46.3); Red Blood Cell Count 4.14 M/mm3 (3.80-5.20)
[2024-05-25 06:37] LABS: Albumin/Globulin Ratio 0.9 (0.8-1.8); Bilirubin, Total 0.4 mg/dL (0.1-1.0); Bun/Creatinine Ratio 16.5 (12.0-20.0); Calcium, Blood 8.3 mg/dL (8.5-10.1); Creatinine, Blood 0.55 mg/dL (0.40-1.00); Globulin, Blood 3.4 g/dL (2.2-4.0); Potassium, Blood 3.6 mmol/L (3.5-5.5); Total Protein, Blood 6.4 g/dL (6.4-8.2)
[2024-05-25 07:26] VITALS: BP 106/69
[2024-05-25] MEDS ORDERED: Rosuvastatin Calcium 10 MG Tab PO SCH (09:00)
[2024-05-25] MEDS ORDERED: Levothyroxine Sodium 0.075 MG Tab PO SCH (09:00)
[2024-05-25] MEDS ORDERED: Lactobacil 2-S.Thermo-Bifido 1 1 Cap PO SCH (09:00)
[2024-05-25] MEDS ORDERED: Citalopram Hydrobromide 20 MG Tab PO SCH (09:00)
[2024-05-25] MEDS ORDERED: Docusate Sodium 100 MG Cap PO SCH (09:00)
[2024-05-25] MEDS ORDERED: Piperacillin/Tazobactam Sod 3.375 GM in NS 100 ML IV SCH (12:00)
[2024-05-25 14:07] LABS: Source, Urine Clean Catch
[2024-05-25 14:11] LABS: Appearance, Urine Clear (Clear); Bilirubin, Urine Neg (Neg); Blood, Urine Neg (Neg); Color, Urine Yellow (P-Yellow); Glucose Qualitative, Urine Neg (Neg); Ketones, Urine Neg (Neg); Leukocyte Esterase, Urine Neg (Neg); Nitrite, Urine Neg (Neg); Protein, Urine Neg (Neg); Specific Gravity, Urine 1.015 (1.003-1.022); Urobilinogen, Urine NORM (Normal)
[2024-05-25 14:55] VITALS: BP 93/59
--- NOTE | 2024-05-25 19:19 | NUR ---
SHIFT SUMMARY: PT IS A/O X 4, SBA PLEASANT AND COOPERATIVE WITH CARE. PT CONTINUES TO HAVE PAIN THROUGHOUT THE DAY. MORPHINE 2 MG IV GIVEN TORADOL AND TYLENOL WERE INEFFECTIVE. MORPHINE WAS EFFECTIVE IN MANAGING PAIN. PT REPORTED HAVING INCREASED DRAINAGE FROM SORE FROM LABIA WHEN SHE WENT TO THE BATHROOM. OBSERVED ON PAD AND ONLY DIME SIZE SPOT NOTED. CREAM APPLIED TO BARBARA AREA DUE TO REPORTS OF BURNING AFTER URINATION. UA WAS NEGATIVE.
[2024-05-25 19:22] VITALS: BP 100/65
[2024-05-25] MEDS ORDERED: Calcium Carbonate 500 MG Tab Chew PO PRN (23:30)
[2024-05-26 03:53] VITALS: BP 111/74
--- NOTE | 2024-05-26 06:03 | NUR ---
SHIFT SUMMARY PT TRANSFERRED TO ROOM 333 FROM ROOM 349. PT MEDICATED FOR NECK PAIN, MIGRAINE HEADACHE, AND LABIAL PAIN- SEE EMAR. PT WITH SEVERE GASTRIC REFLUX AFTER IV MORPHINE GIVEN- ORDERE RECEIVED FOR TUMS WITH STATED RELIEF. MESH UNDERWEAR AND PADS PROVIDED TO PT- SMALL AMOUNT OF DRAINAGE FROM LABIAL WOUND. CELLULITIS REMAINS TO MONS PUBIS AND ESPECIALLY RIGHT SIDE OF LABIA. PT SLEPT INTERMITTENTLY THROUGH THE NIGHT. BED IN LOWEST POSITION, CALL LIGHT WITHIN REACH, SIDE RAILS UP X2.
[2024-05-26 07:22] VITALS: BP 108/69
[2024-05-26 15:20] VITALS: BP 109/65
--- NOTE | 2024-05-26 17:42 | NUR ---
SHIFT SUMMARY: PATIENT A/OX4, CALM, PLEASANT AND COOPERATIVE c CARE. PATIENT DENIES CP/PRESSURE, SOB, N/V AND DIZZINESS. PATIENT MOANS PUBIS AREA HAS REDNESS, FIRM/HARD AND WARM TO TOUCH c SCANT DRAIANIGE TO R LABIA, OUTLINE MARKING IN PLACED. PATIENT MEDICATED FOR PAIN X4 c GOOD EFFECT. PATIENT RECEIVED SCHEDULED IV ABX/MEDS PER EMAR. DR. WEAVER (GENERAL SURGEON) CAME IN THIS PM FOR CONSULT. PATIENT HAD REPEAT CT TO PELVIS AREA c RESULT AVAILABLE FOR REVIEW. PATIENT HAS GOOD APPETITE, CONTINENT OF BLADDER AND AMBULATES TO BATHROOM T/O SHIFT. VITAL SIGNS REVIEWED. CALL LIGHT IN REACH.
[2024-05-26 19:29] VITALS: BP 98/65
[2024-05-27 04:40] VITALS: BP 120/76
--- NOTE | 2024-05-27 05:28 | NUR ---
Pt admitted with cellulitis of the right labia,, area red, swollen, and firm to touch. CT shows no abscess. Pt with significant pain, utilizing torodol, and ultram. VS WNL, UOP above average. Pt independent. BC negative x2 days. Remains on IVABX.
[2024-05-27 07:50] VITALS: BP 114/78
[2024-05-27 14:46] VITALS: BP 120/69
--- NOTE | 2024-05-27 17:28 | NUR ---
PATIENT IS ALERT AND ORIENTED AND COOPERATIVE WITH CARE. C/O PAIN, MEDICATED PER EMAR. UP TO THE BATHROOM INDEPENDENTLY. VISITED HER TODAY. PATIENT CALLS APPROPRIATELY. ON RA. WILL CONTINUE TO MONITOR
[2024-05-27 19:27] VITALS: BP 112/63
[2024-05-28 04:31] VITALS: BP 125/80
--- NOTE | 2024-05-28 05:42 | NUR ---
Pt with increased pain this night, utilized torodol and ultram. Pt encouraged to use pillow between legs when lying on side, and not to wear. Pt VS WNL, PO intake good, Pt remains on IVABX.
[2024-05-28 06:20] LABS: Bun/Creatinine Ratio 16.2 (12.0-20.0); Calcium, Blood 9.3 mg/dL (8.5-10.1); Creatinine, Blood 0.62 mg/dL (0.40-1.00); Potassium, Blood 4.1 mmol/L (3.5-5.5)
[2024-05-28 07:13] VITALS: BP 112/78
[2024-05-28] MEDS ORDERED: HYDROcodone 5-APAP 325 TAB PO PRN (12:00)
[2024-05-28 14:34] VITALS: BP 142/81
--- NOTE | 2024-05-28 18:12 | NUR ---
PATIENT A/OX4, UP INDEPENDENTLY IN ROOM. PUBIC AREA HARD AND RED, BUT RECEEDING FROM ORIGINAL TRACING. VSS, ON RA. 22G TO L WRIST WNL. RECEIVING ZOSYN TO TREAT INFECTION. PAIN BETTER CONTROLLED WITH NORCO AND TORADOL. PATIENT PLEASANT AND COOPERATIVE, ABLE TO MAKE NEEDS KNOWN.
[2024-05-28 19:20] VITALS: BP 106/67
[2024-05-29 02:20] VITALS: BP 131/74
--- NOTE | 2024-05-29 06:27 | NUR ---
SHIFT SUMMARY PT A&OX4 AND ANSWERS QUESTIONS APPROPRIATELY. PT RECEIVED SCHEDULED AND PRN MEDICATIONS. PT VSS, NO COMPLAINTS OF CP/PRESSURE OR SOB. PT SPENT MOST OF SHIFT IN BED RESTING WITH EYES CLOSED AND RESPIRATIONS EVEN AND UNLABORED. PT REPOSITIONED INDEPENDENTLY. NO ACUTE EVENTS AT THIS TIME. PT LEFT IN A POSITION OF SAFETY WITH FALL PRECAUTIONS IN PLACE AND CALL LIGHT IN REACH.
[2024-05-29 08:00] VITALS: BP 115/73
[2024-05-29 15:25] VITALS: BP 122/89
[2024-05-29 19:23] VITALS: BP 113/72
--- NOTE | 2024-05-29 20:04 | NUR ---
SHIFT SUMMARY- PT ALERT, ORIENTED AND INDEPENDENT IN THE ROOM. DR ZEPEDA ROUNDED ON THE PT AND ASSESSED HER SORE WITH RN JUAN DAVID, THIS RN DID NOT VISUALIZE, PER REPORT FROM DR ZEPEDA IT IS A LOT SMALLER TODAY, ALSO PER PT STATEMENT. PT HAS BEEN MEDICATED FOR PAIN PER EMAR. AT THE TIME OF BEDSIDE REPORT SHE IS DISPLAYING S&S OF PAIN. NIGHT RN AWARE STATED THE PAIN MEDS ARE NOT AVAILABLE AT THIS TIME. THE PT HAD SAID SHE COULD WAIT THE 1/2 HOUR FOR THE NORCO. AT THE TIME OF REPORT THIS RN SPOKE TO THE PT ABOUT IF SHHE WANTED TO USE THE IV MORPHINE ORDER SHE HAD AVAILABLE AND SHE APPERAED RELIEVED SAYING "YES! CAN I HAVE THAT NOW." NIGHT RN MEDICATED AFTER BEDSIDE REPORT. PT IN BED, CALL LIGHT IN REACH IV ABX INFUSING AT THE TIME OF BEDSIDE REPORT. PT IS AWARE SHE HAS TO ASK FOR PAIN MEDICATION.
[2024-05-30 04:54] VITALS: BP 120/68
[2024-05-30] MEDS ORDERED: Levothyroxine Sodium 0.075 MG Tab PO SCH (06:00)
--- NOTE | 2024-05-30 06:35 | NUR ---
SHIFT SUMMARY: Pt is admitted for cellulitis and is a full code. Is alert and able to make needs known. ADLs have been IND. pain has been managed with PRN medications.
[2024-05-30 07:13] LABS: Bun/Creatinine Ratio 23.9 (12.0-20.0); Calcium, Blood 9.7 mg/dL (8.5-10.1); Creatinine, Blood 0.59 mg/dL (0.40-1.00); Potassium, Blood 4.2 mmol/L (3.5-5.5)
[2024-05-30 07:55] VITALS: BP 99/70
[2024-05-30] MEDS ORDERED: AMOCLA875 PO (12:48)
== END 2024-05-30 14:39 | disposition home or self-care (01) | DRG 872 ==
LOC: ER 20:21 → MEDS 23:37
PROVIDERS: Internal Medicine; Physician Assistant; Student in an Organized Health Care Education/Training Program; ADMIT Student in an Organized Health Care Education/Training Program
DX: A41.9 Sepsis, unspecified organism (principal); N76.4 Abscess of vulva; E83.39 Other disorders of phosphorus metabolism; G43.909 Migraine, unspecified, not intractable, without status migrainosus; N76.2 Acute vulvitis; E89.0 Postprocedural hypothyroidism; F32.A Depression, unspecified; E78.5 Hyperlipidemia, unspecified; Z87.891 Personal history of nicotine dependence; Z88.8 Allergy status to other drugs, medicaments and biological substances; Z79.890 Hormone replacement therapy; Z79.899 Other long term (current) drug therapy; Q06.1 Hypoplasia and dysplasia of spinal cord; Z87.19 Personal history of other diseases of the digestive system; Z90.49 Acquired absence of other specified parts of digestive tract; Z90.89 Acquired absence of other organs; Z90.710 Acquired absence of both cervix and uterus; Z90.721 Acquired absence of ovaries, unilateral; Z90.79 Acquired absence of other genital organ(s); Z90.2 Acquired absence of lung [part of]
CPT/HCPCS: 36415; 72193; 80048; 80053; 81003; 82248; 83605; 83735; 84100; 84145; 85025; 85610; 85730; 86140; 87040; 94760; 96365-59; 96367; 96375; 99285-25; A9270; J0690; J1200; J1885; J2270; J2543; J3370; J7030; J7040; J7050; J7060; Q9967

== ENCOUNTER 2024-06-08 13:12 | Emergency (ER) | payer OTHER ==
[~2024-06-08] VITALS: Ht 162.6 cm; Wt 79.4 kg
[~2024-06-08 13:12] MED LIST changes: +AMOCLA875 PO; +CITALOPRAM HBR20 M9 PO; +EUTHYROX75 MC1 PO; +IMITREX100 MG PO; +ROSUVASTATIN CA10 MG PO
[2024-06-08 14:46] LABS: BASOPHILS ABSOLUTE AUTO 0.03 K/mm3 (0.00-0.23); BASOPHILS PERCENT AUTO 1 % (0-2); EOSINOPHILS ABSOLUTE AUTO 0.16 K/mm3 (0.00-0.68); EOSINOPHILS PERCENT AUTO 3 % (0-6); Hematocrit 38.1 % (33.0-51.0); Hemoglobin 13.6 g/dL (11.5-16.0); IMMATURE GRAN ABSOLUTE AUTO 0.01 K/mm3 (0.00-0.10); IMMATURE GRAN PERCENT AUTO 0 % (0-1); LYMPHOCYTES ABSOLUTE AUTO 2.08 K/mm3 (0.84-5.20); LYMPHOCYTES PERCENT AUTO 41 % (21-46); MONOCYTES ABSOLUTE AUTO 0.51 K/mm3 (0.16-1.47); MONOCYTES PERCENT AUTO 10 % (4-13); Mean Corpuscular HGB 29.6 pg (26.0-34.0); Mean Corpuscular HGB Conc 35.7 g/dL (31.5-36.5); Mean Corpuscular Volume 83 fL (80-100); Mean Platelet Volume 8.7 fL (9.1-12.4); NEUTROPHILS ABSOLUTE AUTO 2.34 K/mm3 (1.96-9.15); NEUTROPHILS PERCENT AUTO 46 % (41-73); Platelet Count 333 K/mm3 (150-400); RDW Coefficient Variation 12.7 % (11.7-14.2); RDW Standard Deviation 38.2 fL (35.1-46.3); Red Blood Cell Count 4.59 M/mm3 (3.80-5.20); White Blood Cell Count 5.13 K/mm3 (4.00-11.30)
[2024-06-08 15:18] LABS: Albumin, Blood 3.9 g/dL (3.4-5.0); Albumin/Globulin Ratio 0.9 (0.8-1.8); Bilirubin, Total 0.5 mg/dL (0.1-1.0); Bun/Creatinine Ratio 31.3 (12.0-20.0); Calcium, Blood 9.7 mg/dL (8.5-10.1); Creatinine, Blood 0.51 mg/dL (0.40-1.00); Globulin, Blood 4.3 g/dL (2.2-4.0); Potassium, Blood 4.4 mmol/L (3.5-5.5); Total Protein, Blood 8.2 g/dL (6.4-8.2)
[2024-06-08] MEDS ORDERED: Ketorolac Tromethamine 15mg Vial IV ONE (18:05)
[2024-06-08] MEDS ORDERED: Lactated Ringer's 1,000 ML IV ONE (18:05)
[2024-06-08 18:23] LABS: Source, Urine Clean Catch
[2024-06-08 18:27] LABS: Appearance, Urine Clear (Clear); Bilirubin, Urine Neg (Neg); Blood, Urine 1+ (Neg); Color, Urine Yellow (P-Yellow); Glucose Qualitative, Urine Neg (Neg); Ketones, Urine Neg (Neg); Leukocyte Esterase, Urine 1+ (Neg); Nitrite, Urine Neg (Neg); Protein, Urine 1+ (Neg); Specific Gravity, Urine 1.025 (1.003-1.022); Urobilinogen, Urine NORM (Normal)
[2024-06-08 18:33] LABS: Bacteria Few /hpf; Red Blood Cells, Urine 0-2 /hpf (0-2); Squamous Epithelial Cells Rare /hpf (Few)
[2024-06-08] MEDS ORDERED: ONDA4ODT MM (19:22)
[2024-06-08 19:35] VITALS: BP 118/73
== END 2024-06-08 19:44 | disposition home or self-care (01) ==
LOC: ER 13:12
PROVIDERS: Physician Assistant
DX: R10.30 Lower abdominal pain, unspecified (principal); E03.9 Hypothyroidism, unspecified; G43.909 Migraine, unspecified, not intractable, without status migrainosus; Z87.42 Personal history of other diseases of the female genital tract; Z87.891 Personal history of nicotine dependence; Z88.1 Allergy status to other antibiotic agents; Z88.8 Allergy status to other drugs, medicaments and biological substances; Z88.3 Allergy status to other anti-infective agents; Z79.890 Hormone replacement therapy; Z79.899 Other long term (current) drug therapy
CPT/HCPCS: 74177; 80053; 81001; 81025; 83605; 85025; 87077; 87086; 87186; 96361; 96374-59; 99284-25; J1885; J7120; Q9967